=== PATIENT | male | born 1980 | race African-American/Black ===

== ENCOUNTER 2020-01-26 12:19 | Emergency (ER) | payer SELFPAY ==
[~2020-01-26] VITALS: Ht 182.9 cm; Wt 97.7 kg
[2020-01-26 14:10] VITALS: BP 122/77
== END 2020-01-26 14:15 | disposition home or self-care (01) ==
LOC: EMS 12:24
DX: R19.5 Other fecal abnormalities (principal); R03.0 Elevated blood-pressure reading, without diagnosis of hypertension; F17.210 Nicotine dependence, cigarettes, uncomplicated